=== PATIENT | male | born 1960 | race Caucasian/White ===

== ENCOUNTER 2017-04-15 18:48 | Inpatient (IN) | payer SELFPAY ==
[~2017-04-15] VITALS: Ht 177.8 cm; Wt 76.5 kg
[2017-04-15] MEDS ORDERED: ONDANSETRON 4 MG INJ IV STA (19:35)
[2017-04-15] MEDS ORDERED: GLUCAGON 1 MG INJ IV STA (20:02)
--- NOTE | 2017-04-15 20:16 | ERD ---
ER Documentation Chief Complaint Date/Time DATE: 04/15/17 TIME: 20:13 Chief Complaint possible throat foreign body x 6 hours, was eating bread HPI 56-year-old male presents here in emergency department for complaints of a foreign body stuck in the mid chest throat area. Patient swallowed subway sandwich and with meat on it, feels that the meat got stuck in the throat. He feels it more in the mid chest area. Patient had the same type of symptoms 5 years ago, had an EGD procedure for evaluation and had a possible bronchoscopy to remove the foreign body. Patient is complaining of pain, sharp pain, 6/10 scale, worst upon swallowing, unable follow liquids because of the sensation. ROS All systems reviewed and are negative except as per history of present illness. Medications Home Meds Reported Medications [none] Unknown Strength No Conflict Check 04/15/17 Allergies Allergies: Coded Allergies: No Known Drug Allergies (Verified Allergy, Unknown, 04/15/17) PMhx/Soc History of Surgery: No Anesthesia Reaction: No Hx Neurological Disorder: No Hx Respiratory Disorders: No Hx Cardiac Disorders: No Hx Psychiatric Problems: No Hx Miscellaneous Medical Probl: No Hx Alcohol Use: No Hx Substance Use: No Hx Tobacco Use: No Smoking Status: Never smoker FmHx Family History: No coronary disease, No diabetes, No other Physical Exam Vitals Vital Signs Date Time Temp Pulse Resp B/P Pulse Ox O2 Delivery O2 Flow Rate FiO2 04/15/17 18:53 98.0 66 20 166/85 99 Physical Exam GENERAL: The patient is well developed and appropriate for usual state of health, in no apparent distress. CHEST: Clear to auscultation bilaterally. There are no rales, wheezes or rhonchi. HEART: Regular rate and rhythm. No murmurs, clicks, rubs or gallops. No S3 or S4. ABDOMEN: Soft, nontender and nondistended. Good bowel sounds. No rebound or guarding. No gross peritonitis. No gross organomegaly or masses. No Fulton sign or McBurney point tenderness. BACK: No midline or flank tenderness. EXTREMITIES: Equal pulses bilaterally. There is no peripheral clubbing, cyanosis or edema. No focal swelling or erythema. Full range of motion. Grossly neurovascularly intact. NEURO: Alert and oriented. Cranial nerves 2-12 intact. Motor strength in all 4 extremities with 5/5 strength. Sensation grossly intact. Normal speech and gait. SKIN: There is no apparent rash or petechia. The skin is warm and dry. HEMATOLOGIC AND LYMPHATIC: There is no evidence of excessive bruising or lymphedema. No gross cervical, axillary, or inguinal lymphadenopathy. His physical exam Results 24 hrs Current Medications Medications (Trade) Dose Ordered Sig/Hoda Route PRN Reason Start Time Stop Time Status Last Admin Dose Admin Ondansetron HCl (Zofran Inj) 4 mg ONCE STAT IV 04/15/17 19:35 04/15/17 19:36 DC 04/15/17 19:40 Glucagon (Glucagen) 0.5 mg ONCE STAT IV 04/15/17 20:02 04/15/17 20:03 DC 04/15/17 20:07 Patient was visualized unable to swallow liquid, I presented this case to my attending physician, Dr. Watson, she recommended to give IV glucagon, have patient drink all, patient was also given Zofran to prevent excessive vomiting. No s/s of respiratory distress at this time Procedures/MDM Medical Decision making: After attempted drinking water, IV glucagon, patient continues to feel the same type of sensation, still continues to have the sensation of foreign body stuck in the mid chest area, and able to swallow. As per discussion with my attending physician, Dr. Watson, patient needs to be admitted to the hospital for GI consult, possible EGD and procedure to remove the foreign body. Patient was informed about this, agrees with plan. Dr. Watson will facilitate patient's admission to the hospital. Departure Diagnosis: Primary Impression: Retained foreign body Condition: ANILA Waldrop NP Apr 15, 2017 20:16
[2017-04-15] MEDS ORDERED: NITROGLYCERIN (SL) 0.4 MG TAB SL ONE (21:30)
[2017-04-15 21:46] LABS: BASOPHILS % 0.4 % (0.0-2.0); EOSINOPHILS # 0.1 10^3/ul (0.0-0.5); EOSINOPHILS % 1.7 % (0.0-7.0); HEMATOCRIT 43.5 % (42.0-52.0); LYMPHOCYTES % 14.1 % (15.0-51.0); MEAN CORPUSCULAR HEMOGLOBIN 29.6 pg (29.0-33.0); MEAN CORPUSCULAR HGB CONC 34.5 g/dl (32.0-37.0); MEAN PLATELET VOLUME 10.2 fl (7.4-10.4); MONOCYTE # 0.4 10^3/ul (0.3-0.9); MONOCYTES % 4.9 % (0.0-11.0); NEUTROPHIL # 5.6 10^3/ul (1.6-7.5); NEUTROPHILS % 78.6 % (39.0-77.0); PLATELET COUNT 228 10^3/UL (140-415); RED BLOOD COUNT 5.06 10^6/ul (4.70-6.10); RED CELL DISTRIBUTION WIDTH 12.3 % (11.5-14.5); WHITE BLOOD COUNT 7.1 10^3/ul (4.8-10.8)
[2017-04-15 22:06] LABS: INR 0.97; PROTIME 12.9 Sec (12.2-14.2)
[2017-04-15 22:07] LABS: ALBUMIN 4.5 g/dl (3.3-4.9); ALBUMIN/GLOBULIN RATIO 1.28; BILIRUBIN,INDIRECT 1.5 mg/dl (0-1.1); BILIRUBIN,TOTAL 1.5 mg/dl (0.2-1.3); CALCIUM 9.5 mg/dl (8.4-10.2); CREATININE 0.78 mg/dl (0.61-1.24); POTASSIUM 3.9 mmol/L (3.5-5.1)
[2017-04-15 22:07] LABS: PARTIAL THROMBOPLASTIN TIME 24.5 Sec (25.0-35.0)
[2017-04-16 00:07] VITALS: PULSE 69; TEMP 97.7
[2017-04-16 00:15] VITALS: BP 156/75; RESP 19
[2017-04-16] MEDS ORDERED: SOD CHLORIDE 0.9% 1,000 ML IV SCH (00:45)
[2017-04-16 00:49] VITALS: Ht 177.8 cm; Wt 76.5 kg
[2017-04-16] MEDS ORDERED: METOCLOPRAMIDE 10 MG INJ IV PRN (01:00)
[2017-04-16] MEDS ORDERED: NACL 0.9% 3 ML SYG IV SCH (01:00)
[2017-04-16] MEDS ORDERED: morphine 2 MG INJ IV PRN (01:00)
[2017-04-16] MEDS ORDERED: ACETAMINOPHEN 650 MG SUPP PR PRN (01:00)
[2017-04-16] MEDS: PANTOPRAZOLE 40 MG INJ IV SCH ×2 (01:31→08:21)
--- NOTE | 2017-04-16 01:47 | HP ---
Date/Time of Note Date/Time of Note DATE: 04/16/17 TIME: 00:50 Assessment/Plan VTE Prophylaxis VTE Prophylaxis Intervention: SCD's Lines/Catheters IV [facility] Saline Lock Assessment/Plan Chief Complaint/Hosp Course This is a 56-year-old male being admitted to the [facility] floor for: #1 foreign body in throat: Previous history of dysphagia with me in 2011. Patient ate a club sandwich meat and now feels like it stuck in his throat. No shortness of breath no chest pain. Sublingual nitroglycerin did not help. At the current time we will keep the patient on Reglan for nausea. Will keep patient n.p.o. Will allow for small sips to see if the fluid may spontaneously pass however patient declines any pain or persistent nausea vomiting will have him stop. Will consult GI for evaluation and likely endoscopic retraction of the foreign body. Will obtain a two-view x-ray as well. #2 history of esophageal disorder: Patient reports previous episode of dysphagia or foreign body was stuck and he needed endoscopy to get it out. At that time he states that they noticed some slight narrowing of his esophagus. Will again consult GI so they can do further evaluation with endoscopy for therapeutic as well as diagnostic purposes for possible underlying achalasia, stricture, rings, Landrum's. #3 acid reflux:: We will continue patient on Protonix, this likely could be cause for patient's dysphagia, will have GI evaluation as per #2. #4 DVT GI prophylaxis: SCD, Protonix further treatment strategy will be implemented as per the clinical course Problems: HPI/ROS Admit Date/Time Admit Date/Time Apr 15, 2017 at 22:57 Hx of Present Illness cc: food stuck in throat 56-year-old male presents here in emergency department for complaints of food stuck in the mid chest throat area. Patient swallowed subway sandwich and with meat in it, feels that the meat got stuck in the throat. He feels it more in the mid chest area. Patient had the same type of symptoms 5 years ago, had an EGD procedure for evaluation and had an endoscopy to remove. It happened that time with meat and this time he ate a sandwhich that had meat in it. He usually avoids meat. Patient is complaining of pain, sharp pain, 6/10 scale, worst upon swallowing, unable follow liquids because of the sensation. nausea. allergies: nkda meds: none ROS Const: As per HPI Eyes : No pain discharge or redness or change in visual acuity ENT: No pain, sore throat, congestion, congestion, dysphagia or discharge Respiratory: No shortness of breath, cough, sputum, wheezing, or pleuritic pain Cardiovascular: No chest pain, palpitation, PND, or edema GI : As per HPI Genitourinary: No dysuria, hematuria, flank pain , discharge or CVA tenderness Musculoskeletal: No joint pain, back pain, neck pain, restricted range of motion in neck or joints Skin: No rash, bruising or hives Neuro: No headache, dizziness, syncope, seizure, focal weakness Endocrine: No polyuria, polydipsia, temperature intolerance Psych: No hallucination, depression, anxiety or suicidal ideation PMH/Family/Social Past Medical History Previous history of dysphagia, GERD Past Surgical History Endoscopy 2011 to treat food stuck in his throat at that time Family History Significant Family History: no pertinent family hx Social History Alcohol Use: none Smoking Status: Never smoker Drug Use: none Exam/Review of Systems Vital Signs Vitals Vital Signs Date Time Temp Pulse Resp B/P Pulse Ox O2 Delivery O2 Flow Rate FiO2 04/16/17 00:07 97.7 69 17 110/78 98 Room Air Exam Exam General: Patient sitting in bed in no acute pain,, he does have some nausea edition at times and is spitting clear his throat. HEENT: Atraumatic, normocephalic. The pupils are equal, round and reactive. Extraocular motor are intact, no fluid visible in the oral cavity Neck: Supple with full range of motion. No rigidity or meningismus, no pain to palpation along the neck Lungs: Clear to auscultation bilaterally no crackles rales or wheezing Heart: Normal S1-S2, Regular rhythm and rate. No murmur, S3, or S4 Abdomen: Soft , nontender, nondistended , bowel sounds are present. No guarding no rebound tenderness , No masses or organomegaly. No costovertebral temporal angle mass Extremities: Normal to inspection, no edema no cyanosis Neurologic: Normal mental status, speech normal, cranial nerves II through XII are intact, motor and sensory are intact, no focal weakness Labs Result Diagram: 04/15/17210004/15/172100 Medications Medications Current Medications Sodium Chloride (NS) 1,000 ml @ 70 mls/hr [id number] IV ; Start 04/16/17 at 00:45 ; Status UNV Metoclopramide HCl (Reglan) 10 mg Q6H PRN IV NAUSEA AND/OR VOMITING; Start at 01:00; Status UNV Acetaminophen (Tylenol Supp) 650 mg Q6H PRN [place] PAIN LEVEL 1-3 OR FEVER; Start 04/16/17 at 01:00; Status UNV Morphine Sulfate (morphine) 2 mg Q4H PRN IV SEVERE PAIN LEVEL 7-10; Start 04/16 at 01:00; Status UNV Pantoprazole (Protonix Iv) 40 mg BID IV ; Start 04/16/17 at 01:00; Status UNV KEVIN WRIGHT Apr 16, 2017 01:46
[2017-04-16 02:14] VITALS: BP 125/70; RESP 19
[2017-04-16 05:51] LABS: BASOPHIL # 0.1 10^3/ul (0.0-0.1); BASOPHILS % 0.8 % (0.0-2.0); EOSINOPHILS # 0.2 10^3/ul (0.0-0.5); EOSINOPHILS % 2.3 % (0.0-7.0); HEMATOCRIT 40.3 % (42.0-52.0); HEMOGLOBIN 13.9 g/dl (14.0-18.0); MEAN CORPUSCULAR HEMOGLOBIN 29.8 pg (29.0-33.0); MEAN CORPUSCULAR HGB CONC 34.5 g/dl (32.0-37.0); MEAN CORPUSCULAR VOLUME 86.5 fl (82.0-101.0); MEAN PLATELET VOLUME 10.1 fl (7.4-10.4); MONOCYTE # 0.5 10^3/ul (0.3-0.9); MONOCYTES % 8.1 % (0.0-11.0); NEUTROPHIL # 3.7 10^3/ul (1.6-7.5); NEUTROPHILS % 57.5 % (39.0-77.0); PLATELET COUNT 221 10^3/UL (140-415); RED BLOOD COUNT 4.66 10^6/ul (4.70-6.10); RED CELL DISTRIBUTION WIDTH 12.6 % (11.5-14.5); WHITE BLOOD COUNT 6.4 10^3/ul (4.8-10.8)
[2017-04-16 06:18] LABS: CHOL/HDL RATIO 3.3 RATIO
[2017-04-16 06:22] LABS: ALBUMIN/GLOBULIN RATIO 1.25; BILIRUBIN,INDIRECT 2.1 mg/dl (0-1.1); BILIRUBIN,TOTAL 2.1 mg/dl (0.2-1.3); CALCIUM 9.2 mg/dl (8.4-10.2); CREATININE 0.81 mg/dl (0.61-1.24); POTASSIUM 4.1 mmol/L (3.5-5.1); TOTAL PROTEIN 7.2 g/dl (6.1-8.1)
[2017-04-16 08:17] VITALS: BP 123/77; RESP 20
--- NOTE | 2017-04-16 08:53 | RADRPT ---
PROCEDURE: XR Chest. CLINICAL INDICATION: Dysphasia, foreign body TECHNIQUE: PA and lateral views of the chest. COMPARISON: No pertinent prior examinations were submitted for comparison. FINDINGS: The cardiomediastinal silhouette is normal. The aorta is normal. No focal consolidation, pleural eff usion or pneumothorax is seen. No foreign body is identified. The osseous structures are intact. IMPRESSION: No radiographic evidence of acute cardiopulmonary disease. Physician Lisa Date Time Electronically viewed and signed by Doreen Rubio Physician on 04/16/2017 08:53 CS/
[2017-04-16] MEDS ORDERED: PANT40TA3 PO (13:22)
--- NOTE | 2017-04-16 13:24 | PN ---
Date/Time of Note Date/Time of Note DATE: 04/16/17 TIME: 13:23 Assessment/Plan VTE Prophylaxis VTE Prophylaxis Intervention: SCD's Lines/Catheters IV Catheter Type (from Nrsg): Saline Lock Urinary Cath still in place: No Assessment/Plan Assessment/Plan 1. Esophageal foreign body, awaiting for EGD by GI, home after if stable 2. GERD, on protonix Subjective 24 Hr Interval Summary Free Text/Dictation still has food stuck in throat Exam/Review of Systems Vital Signs Vitals Vital Signs Date Time Temp Pulse Resp B/P Pulse Ox O2 Delivery O2 Flow Rate FiO2 04/16/17 08:17 97.8 62 20 123/77 98 04/16/17 00:07 Room Air Intake and Output 04/15/17 04/15/17 04/16/17 15:00 23:00 07:00 Intake Total 245 ml Balance 245 ml Exam Constitutional: alert, oriented, well developed Psych: nl mood/affect, no complaints Head: atraumatic, normocephalic Eyes: EOMI, PERRL, nl conjunctiva, nl lids, nl sclera ENMT: nl external ears & nose, nl lips & teeth, nl nasal mucosa & septum Neck: non-tender, supple Respiratory: clear to auscultation, normal air movement, No congested cough, No crackles/rales, No diminished breath sounds, No intercostal retraction, No labored breathing, No other, No respirations, No tactile fremitus, No wheezing Cardiovascular: nl pulses, regular rate and rhythm, No S3, No S4, No bruits, No diastolic murmur, No edema, No gallop, No irregular rhythm, No jugular venous distention (JVD), No murmurs/extra sounds, No other, No rub, No systolic murmur Gastrointestinal: nl liver, spleen, non-tender, soft, No ascites, No bowel sounds, No distended, No firm, No hepatomegaly, No mass , No other, No rebound or guarding, No splenomegaly, No surgical scars, No tender Musculoskeletal: nl extremities to inspection Extremities: normal pulses, No calf tenderness, No clubbing, No edema, No other, No palpable cord, No pitting pedal edema, No tenderness Neurological: TAX INTERN II-XII intact, nl mental status, nl speech, nl strength Results Result Diagram: 04/16/17 0452 04/16/17 0453 Results 24 hrs Laboratory Tests Test 04/15/17 21:01 04/15/17 21:11 04/16/17 04:52 04/16/17 04:53 White Blood Count 7.1 6.4 Red Blood Count 5.06 4.66 L Hemoglobin 15.0 13.9 L Hematocrit 43.5 40.3 L Mean Corpuscular Volume 86.0 86.5 Mean Corpuscular Hemoglobin 29.6 29.8 Mean Corpuscular Hemoglobin Concent 34.5 34.5 Red Cell Distribution Width 12.3 12.6 Platelet Count 228 221 Mean Platelet Volume 10.2 10.1 Neutrophils % 78.6 H 57.5 Lymphocytes % 14.1 L 31.0 Monocytes % 4.9 8.1 Eosinophils % 1.7 2.3 Basophils % 0.4 0.8 Nucleated Red Blood Cells % 0.0 0.0 Neutrophils # 5.6 3.7 Lymphocytes # 1.0 2.0 Monocytes # 0.4 0.5 Eosinophils # 0.1 0.2 Basophils # 0.0 0.1 Nucleated Red Blood Cells # 0.0 0.0 Sodium Level 140 140 Potassium Level 3.9 4.1 Chloride Level 104 106 Carbon Dioxide Level 29 29 Anion Gap 11 9 Blood Urea Nitrogen 18 21 H Creatinine 0.78 0.81 Glucose Level 127 89 Calcium Level 9.5 9.2 Total Bilirubin 1.5 H 2.1 H Direct Bilirubin 0.00 0.00 Indirect Bilirubin 1.5 H 2.1 H Aspartate Amino Transf (AST/SGOT) 29 26 Alanine Aminotransferase (ALT/SGPT) 42 43 Alkaline Phosphatase 51 43 Total Protein 8.0 7.2 Albumin 4.5 4.0 Globulin 3.50 H 3.20 Albumin/Globulin Ratio 1.28 1.25 Prothrombin Time 12.9 Prothrombin Time Ratio 1.0 INR International Normalized Ratio 0.97 Activated Partial Thromboplast Time 24.5 L Hemoglobin A1c 4.9 Triglycerides Level 61 Cholesterol Level 255 H LDL Cholesterol, Calculated 167 HDL Cholesterol 76 H Cholesterol/HDL Ratio 3.3 Thyroid Stimulating Hormone (TSH) 1.620 Medications Medications Current Medications Sodium Chloride (NS) 1,000 ml @ 70 mls/hr [id number] IV Last administered on 04/16t 01:32; Admin Dose 70 MLS/HR; Start 04/16/17 at 00:45 Metoclopramide HCl (Reglan) 10 mg Q6H PRN IV NAUSEA AND/OR VOMITING; Start at 01:00 Acetaminophen (Tylenol Supp) 650 mg Q6H PRN [place] PAIN LEVEL 1-3 OR FEVER; Start 04/16/17 at 01:00 Morphine Sulfate (morphine) 2 mg Q4H PRN IV SEVERE PAIN LEVEL 7-10; Start 04/16 at 01:00 Pantoprazole (Protonix Iv) 40 mg BID IV Last administered on 04/16/17 08:21; Admin Dose 40 MG; Start 04/16/17 at 01:00 GIANNA MURRAY MD Apr 16, 2017 13:24
[2017-04-16 15:02] VITALS: BP 136/88; RESP 20
--- NOTE | 2017-04-17 14:38 | DS ---
Date/Time of Note Date/Time of Note DATE: 04/17/17 TIME: 14:36 Discharge Summary Admission/Discharge Info Admit Date/Time Apr 15, 2017 at 22:57 Discharge Date/Time Apr 16, 2017 at 15:49 Discharge Diagnosis 1. Esophageal foreign body, resolved, elective EGD outpatient 2. GERD, on protonix Patient Condition: Stable Hx of Present Illness Hospital Course 56-year-old male presents here in emergency department for complaints of food stuck in the mid chest throat area. Patient swallowed subway sandwich and with meat in it, feels that the meat got stuck in the throat. He feels it more in the mid chest area. Patient had the same type of symptoms 5 years ago, had an EGD procedure for evaluation and had an endoscopy to remove. It happened that time with meat and this time he ate a sandwhich that had meat in it. He usually avoids meat. Patient is complaining of pain, sharp pain, 6/10 scale, worst upon swallowing, unable follow liquids because of the sensation. nausea. Symptoms resolved spontaneously while he was awaiting for EGD. He tolerates diet and discharged. He is instructed to get elective EGD as soon as possible. Home Meds Active Scripts Pantoprazole* (Protonix*) 40 Mg Tablet., 40 MG PO DAILY, #30 TAB Prov:GIANNA MURRAY MD 04/16/17 Reported Medications [none] Unknown Strength No Conflict Check 04/15/17 Follow-up Plan PCP in one week Primary Care Provider Not On Staff Doctor GIANNA MURRAY MD Apr 17, 2017 14:38
== END 2017-04-16 15:49 | disposition home or self-care (01) | DRG 395 ==
LOC: FTE 18:48 → PP2 22:57
PROVIDERS: ADMIT Family Medicine; ATTEND Family Medicine
DX: T18.128A Food in esophagus causing other injury, initial encounter (principal); K21.9 Gastro-esophageal reflux disease without esophagitis; X58.XXXA Exposure to other specified factors, initial encounter
CPT/HCPCS: 71020; 80053; 80061; 83036; 84443; 85025; 85610; 85730; 96374; 96375; C9113; J1610; J2405; J7030